=== PATIENT | female | born 1965 | race Caucasian/White ===

== ENCOUNTER 2017-01-14 09:45 | Emergency (ER) | payer MEDICAID, OTHER ==
[~2017-01-14] VITALS: Ht 152.4 cm; Wt 51.0 kg
[2017-01-14 09:49] VITALS: Ht 152.4 cm; Wt 51.0 kg
[2017-01-14] MEDS ORDERED: BACI28.34 TOP (10:17)
[2017-01-14] MEDS ORDERED: DIPHTH/TET/ACEL PERTUSS (ADULT) 0.5 ML VIAL IM* ONE (10:30)
[2017-01-14] MEDS ORDERED: BACITRACIN 0.9 GM OINT TOP ONE (10:30)
--- NOTE | 2017-01-14 11:08 | ERD ---
ER Documentation Chief Complaint Date/Time DATE: 01/14/17 TIME: 11:05 Chief Complaint right hand burn with bleach HPI 51 yo female comes in with a right hand burn from bleach that occurred 5 days ago. Patient states that she was cleaning dishes, the dishes were soaking in water with bleach and she placed her hand in it, and she has had some blisters however they have flattened out. She has been applying aloe vera to the area. She denies pain at this time or fevers. Patient does not recall her last tetanus shot. ROS All systems reviewed and are negative except as per history of present illness. Medications Home Meds Active Scripts Bacitracin* (Bacitracin Zinc Oint*) 28.35 Gm Oint, 1 APPLIC TOP BID, #1 TUB APPLI TO Prov:YAMILA STINSON PA-C 01/14/17 PMhx/Soc Medical and Surgical Hx: pt denies Medical Hx, pt denies Surgical Hx Hx Alcohol Use: No Hx Substance Use: No Hx Tobacco Use: No Smoking Status: Never smoker Physical Exam Vitals Vital Signs Date Time Temp Pulse Resp B/P Pulse Ox O2 Delivery O2 Flow Rate FiO2 01/14/17 09:49 98.1 80 18 131/74 99 Physical Exam General: Well-developed, well-nourished. The patient appears in no acute distress. HEENT: Head is normocephalic, atraumatic. No scleral icterus. Neck: Supple. Nontender. Lungs: Clear to auscultation. Normal air movement. Heart: Regular rate and rhythm. S1 and S2 are normal. No murmurs, gallops, or rubs. Abdomen: Nondistended. Extremities: No clubbing or cyanosis. Moving extremities x 4. No weakness. Neurologic: Alert and oriented 3. No focal deficits. Normal speech and gait. Skin: Right palm has callus, blisters, there are flattened, there is no tenderness erythema or drainage. Capillary refill less than 2 seconds. Results 24 hrs Current Medications Medications (Trade) Dose Ordered Sig/Yaniv Route PRN Reason Start Time Stop Time Status Last Admin Dose Admin Bacitracin (Bacitracin Oint (Ud)) 1 applic ONCE ONCE TOP 01/14/17 10:30 01/14/17 10:31 DC Diphtheria/ Tetanus/Acell Pertussis (Adacel) 0.5 ml ONCE ONCE IM* 01/14/17 10:30 01/14/17 10:31 DC 01/14/17 10:25 Procedures/MDM ED course: Patient's tetanus is updated. Bacitracin was applied as well as a clean dressing. MDM: 51-year-old female comes in with a chemical burn to the right palm from burn that was from 5 days ago. Her skin is intact, there are no signs of cellulitis, abscess or any limb threatening process. She is asymptomatic at this time, she previously applied aloe vera and the skin seems to be healing well. She will be given a short course of bacitracin to apply and has been asked to keep the area clean and dry. Departure Diagnosis: Primary Impression: Burn, hands, second degree Condition: Good Patient Instructions: Chemical Burn, Skin Additional Instructions: WOUND CHECK:CONSULTE A CHENTE MACKAY EN 2 neal para gisele ELDRIDGE HERIDA. YAMILA STINSON PA-C Jan 14, 2017 11:08
== END 2017-01-14 10:45 | disposition home or self-care (01) ==
LOC: FTE 09:45
DX: T54.3X1A Toxic effect of corrosive alkalis and alkali-like substances, accidental (unintentional), initial encounter (principal); X58.XXXA Exposure to other specified factors, initial encounter; Y92.9 Unspecified place or not applicable; Z23 Encounter for immunization
CPT/HCPCS: 90471; 90715